=== PATIENT | male | born 1960 | race Caucasian/White ===

== ENCOUNTER 2016-10-06 19:53 | Emergency (ER) | payer MEDICAID ==
[~2016-10-06] VITALS: Ht 177.8 cm; Wt 83.9 kg
[2016-10-06 20:02] VITALS: BP 141/79
== END 2016-10-07 03:20 | disposition left against medical advice (07) ==
LOC: EDBD 19:53 → ER 20:14
DX: R10.9 Unspecified abdominal pain (principal); F10.10 Alcohol abuse, uncomplicated; Z53.21 Procedure and treatment not carried out due to patient leaving prior to being seen by health care provider
CPT/HCPCS: 81001